=== PATIENT | male | born 1960 | race Caucasian/White ===

== ENCOUNTER → 2017-01-13 | Day surgery (SDC) | payer OTHER ==
[2016-12-29 14:07] VITALS: BMI 25.0
[~2017-01-13] VITALS: Ht 188 cm; Wt 88.6 kg
[~2017-01-13] MED LIST: ATROPINE SULFATE 0.1 MG/ML 5ML SYR IV PRN; CLR10 PO; EpHEDrine SULFATE INJ 50 MG/ML AMP IV PRN; FENTANYL CITRATE INJ 50 MCG/1 ML 2 ML VIAL ONE; KETAMINE HCL INJ 50 MG/ML 10 ML VIAL ONE; LACTATED RINGER'S 1000ML 1,000 ML IV SCH; LIDOCAINE HCL 2% 2 ML VIAL (20MG/ML) ONE; MIDAZOLAM HCL 1 MG/ML 2ML VIAL ONE; MULT-506 PO; PROPOFOL IV EMULSION 10 MG/ML 20 ML VIAL IV ONE; VITACAP26 PO; Vitamin C PO; Vitamin E PO
[2017-01-13 06:22] VITALS: BP 135/65; PULSE 88; TEMP 36.5; O2SAT 95; Ht 188 cm; Wt 88.6 kg
[2017-01-13 08:20] VITALS: BP 137/75; PULSE 47; TEMP 36.5; O2SAT 96
--- NOTE | 2017-01-13 08:39 | Anesthesiology Progress Note ---
Anesthesia Post Op Note Date & Time January 13, 2017 at 08:40 Vital Signs Pain Intensity: 4 Vital Signs Past 12 Hours Date Time Temp Pulse Resp B/P Pulse Ox O2 Delivery O2 Flow Rate FiO2 01/13/17 08:20 36.5 47 16 137/75 96 Room Air 01/13/17 06:22 36.5 88 16 135/65 95 Room Air Notes Mental Status: alert / awake / arousable, participated in evaluation Pt Amnestic to Procedure: Yes Nausea / Vomiting: adequately controlled Pain: adequately controlled Airway Patency, RR, SpO2: stable & adequate BP & HR: stable & adequate Hydration State: stable & adequate Anesthetic Complications: no major complications apparent
[2017-01-13 08:50] VITALS: BP 122/65; PULSE 56; TEMP 36.5; O2SAT 96
--- NOTE | 2017-01-13 09:02 | DIAGNOSTIC IMAGING REPORT ---
LUMBAR SPINE MRI HISTORY: Back pain. Neuropathy. LBP TECHNIQUE: Multiplanar multisequence MRI of the lumbar spine was performed without the use of contrast. COMPARISON: None. FINDINGS: For the purpose of the report the L5-S1 disc space will be located on axial image 23 of 25. Normal signal characteristics of the vertebral bodies. Moderate degenerative vertebral this change L4-S1. L1-L2: No significant central canal or neural foraminal narrowing. L2-L3: No significant central canal or neural foraminal narrowing. L3-L4: Broad-based bulging disc with mild impact anterior thecal sac. The neuroforamina are patent bilaterally. L4-L5: Broad-based right central disc herniation. Moderate narrowing right neuroforamina. Moderate to significant multifactorial narrowing of the spinal canal. Minimal narrowing left neuroforamina. Mild degenerative hypertrophic change posterior facets. L5-S1: Significant multifactorial spinal stenosis. Broad-based bulging disc. Moderate narrowing of the neuroforamina bilaterally. IMPRESSION: 1. Significant to severe multifactorial spinal stenosis at L4-L5 and L5-S1. 2. Broad-based right central disc herniation L4-L5 demonstrating moderate rather significant compromise of the right and to lesser extent left neuroforamina. 3. Broad-based bulging disc L5-S1 with moderate narrowing of the neuroforamina bilaterally. Electronically signed by: Jamar Griggs M.D. 01/13/2017 9:01 AM Dictated Date/Time: 01/13/2017 8:57 AM
== END | disposition home or self-care (01) ==
LOC: C.ACU 06:01
PROVIDERS: ATTEND Internal Medicine
DX: M48.07 Spinal stenosis, lumbosacral region (principal); M51.26 Other intervertebral disc displacement, lumbar region; M51.87 Other intervertebral disc disorders, lumbosacral region; I44.7 Left bundle-branch block, unspecified; J45.909 Unspecified asthma, uncomplicated

== ENCOUNTER 2017-04-07 06:37 | Day surgery (SDC) | payer OTHER ==
[2017-03-13 07:51] VITALS: BMI 24.0
[~2017-04-07] VITALS: Ht 190.5 cm; Wt 88.0 kg
[~2017-04-07 06:37] MED LIST changes: -ATROPINE SULFATE 0.1 MG/ML 5ML SYR IV PRN; -CLR10 PO; -EpHEDrine SULFATE INJ 50 MG/ML AMP IV PRN; -FENTANYL CITRATE INJ 50 MCG/1 ML 2 ML VIAL ONE; -KETAMINE HCL INJ 50 MG/ML 10 ML VIAL ONE; -VITACAP26 PO; -Vitamin C PO; -Vitamin E PO
[2017-04-07] MEDS ORDERED: CLR10 PO (07:01)
[2017-04-07] MEDS ORDERED: Vitamin E PO (07:01)
[2017-04-07] MEDS ORDERED: VITACAP26 PO (07:01)
[2017-04-07] MEDS ORDERED: Vitamin C PO (07:03)
[2017-04-07 07:05] VITALS: BP 138/81; PULSE 52; TEMP 36.7; O2SAT 96; Ht 190.5 cm; Wt 88.0 kg
[2017-04-07] MEDS ORDERED: FENTANYL CITRATE INJ 50 MCG/1 ML 2 ML VIAL ONE ×2 (07:30→07:32)
[2017-04-07] MEDS ORDERED: GLYCOPYRROLATE INJ 0.2 MG/ML VIAL ONE (07:30)
[2017-04-07] MEDS ORDERED: FENTANYL CITRATE INJ 50 MCG/1 ML 2 ML VIAL IV PRN (08:30)
[2017-04-07] MEDS ORDERED: ATROPINE SULFATE 0.1 MG/ML 5ML SYR IV PRN (08:30)
[2017-04-07] MEDS ORDERED: ONDANSETRON INJ 2 MG/ML 2 ML VIAL IV PRN (08:30)
[2017-04-07] MEDS ORDERED: EpHEDrine SULFATE INJ 50 MG/ML AMP IV PRN (08:30)
[2017-04-07] MEDS ORDERED: GADAVIST IV PRN (08:45)
[2017-04-07 08:55] VITALS: BP 105/51; PULSE 59; TEMP 36.3; O2SAT 96
--- NOTE | 2017-04-07 09:01 | DIAGNOSTIC IMAGING REPORT ---
MRI OF THE BRAIN WITHOUT AND WITH IV CONTRAST CLINICAL HISTORY: MOVEMENT DISORDER, TREMORS. COMPARISON STUDY: No previous studies for comparison. TECHNIQUE: MRI of the brain was performed from the vertex to the skull base utilizing various T1 and T2 weighted sequences. Following the IV administration of 8.5 mL of Gadavist contrast, additional enhanced images were obtained. FINDINGS: Sagittal T1, axial diffusion, proton density and T2 weighted axial, coronal FLAIR, and pre and post axial T1-weighted images were acquired. These were supplemented with post gadolinium coronal T1 weighted images. No intra or extra-axial mass lesions are visualized. Axial diffusion-weighted images reveal no evidence of acute or subacute infarction. There is no evidence of ventricular dilatation. Proton density T2-weighted and FLAIR images reveal scattered foci of increased T2 signal within the white matter, likely on a small vessel basis. There are no abnormal flow voids. There is no evidence of pathologic enhancement. Foci of increased T2 signal within the left mastoid likely inflammatory IMPRESSION: 1. No evidence of intracranial mass 2. No evidence of acute or subacute infarction 3. Minor scattered foci of increased T2 signal within the white matter likely a small vessel basis 4. Foci of increased T2 signal within the left mastoid likely inflammatory Electronically signed by: Sam Hilton M.D. 04/07/2017 9:00 AM Dictated Date/Time: 04/07/2017 8:56 AM
[2017-04-07 09:25] VITALS: BP 118/69; PULSE 55; TEMP 36.2; O2SAT 98
--- NOTE | 2017-04-07 09:33 | Anesthesiology Progress Note ---
Anesthesia Post Op Note Date & Time Apr 07, 2017 at 09:33 Vital Signs Pain Intensity: 3 Vital Signs Past 12 Hours Date Time Temp Pulse Resp B/P (MAP) Pulse Ox O2 Delivery O2 Flow Rate FiO2 04/07/17 08:55 36.3 59 18 105/51 96 Room Air 04/07/17 07:05 36.7 52 18 138/81 (100) 96 Room Air Notes Mental Status: alert / awake / arousable, participated in evaluation Pt Amnestic to Procedure: Yes Nausea / Vomiting: adequately controlled Pain: adequately controlled Airway Patency, RR, SpO2: stable & adequate BP & HR: stable & adequate Hydration State: stable & adequate Anesthetic Complications: no major complications apparent
[2017-04-07 09:55] VITALS: BP 108/55; PULSE 60; TEMP 36.2; O2SAT 98
== END 2017-04-07 10:06 | disposition home or self-care (01) ==
LOC: C.ACU 06:37
PROVIDERS: ATTEND Internal Medicine
DX: M48.07 Spinal stenosis, lumbosacral region (principal); M51.26 Other intervertebral disc displacement, lumbar region; M51.87 Other intervertebral disc disorders, lumbosacral region; R25.1 Tremor, unspecified; J45.909 Unspecified asthma, uncomplicated